=== PATIENT | female | born 1980 | race Caucasian/White ===

== ENCOUNTER 2023-06-15 11:39 | Emergency (ER) | payer MEDICAID ==
[~2023-06-15] VITALS: Ht 160 cm; Wt 45.0 kg
[~2023-06-15 11:39] MED LIST: DICY-18 PO
[2023-06-15 11:41] VITALS: O2SAT 100
[2023-06-15] MEDS ORDERED: SODIUM CHLORIDE 0.9% 1,000 ML IV ONE (12:30)
[2023-06-15 14:07] LABS: BASOPHILS % 0.2 % (0.0-2.0); DIFFERENTIAL COMMENT 0; EOSINOPHILS % 0.1 % (0.0-5.0); HEMATOCRIT. 33.9 % (36.0-48.0); HEMOGLOBIN. 10.8 g/dL (12.0-16.0); LYMPHOCYTES % 12.8 % (20.0-50.0); MEAN CORPUSCULAR HGB CONC 31.9 g/dL (31.0-37.0); MEAN CORPUSCULAR VOLUME 78.2 fL (81.0-99.0); MEAN PLATELET VOLUME 9.8 fl (7.4-10.4); MONOCYTES % 2.8 % (2.0-8.0); NEUTROPHILS % 84.1 % (40.0-76.0); PLATELET 215 x1000/uL (130-400); RED BLOOD CELL COUNT 4.34 mill/uL (4.2-5.4); RED CELL DISTRIBUTION WIDTH 14.8 % (11.6-14.6); WHITE BLOOD COUNT 10.8 x1000/uL (4.5-11.0)
[2023-06-15 14:17] LABS: CLARITY URINE CLEAR (CLEAR); COLOR URINE YELLOW (YELLOW); GLUCOSE URINE NEGATIVE (NEGATIVE); KETONES URINE 1+ (NEGATIVE); LEUKOCYTE ESTERASE URINE NEGATIVE (NEGATIVE); NITRITE URINE NEGATIVE (NEGATIVE); OCCULT BLOOD URINE 3+ (NEGATIVE); PROTEIN URINE TRACE (NEGATIVE); SPECIFIC GRAVITY URINE 1.024 (1.005-1.030)
[2023-06-15 14:24] LABS: PROTHROMBIN TIME 10.3 sec (9.6-11.0)
[2023-06-15 14:38] LABS: ALANINE AMINOTRANSFERASE < 7 IU/L (10-49); ALBUMIN 4.2 g/dL (3.2-4.8); ASPARTATE AMINOTRANSFERASE 17 IU/L (<34); BILIRUBIN TOTAL 0.7 mg/dL (0.1-1.0); CALCIUM 8.8 mg/dL (8.7-10.4); CARBON DIOXIDE 26 mEq/L (21-32); CHLORIDE 108 mEq/L (98-107); CREATININE 0.7 mg/dL (0.6-1.0); GLUCOSE 88 mg/dL (70-105); POTASSIUM 3.7 mEq/L (3.5-5.1); PROTEIN TOTAL 7.3 g/dL (6.0-8.3); SODIUM 141 mEq/L (136-145); UREA NITROGEN BLOOD 13 mg/dL (9-23)
[2023-06-15 14:39] LABS: SQUAMOUS EPITHELIAL CELL URINE FEW /lpf (RARE/1+)
[2023-06-15 14:40] LABS: BACTERIA URINE 1+; MUCUS URINE 1+ /lpf (< = 2+)
[2023-06-15 14:41] LABS: RBC URINE 50-100 /hpf (0-2); WBC URINE 0-2 /hpf (0-2)
[2023-06-15 14:46] LABS: B-HCG QUANTITATIVE < 1 mIU/mL (<3); TROPONIN I HIGH SENSITIVITY < 4 ng/L (3.0-34)
[2023-06-15 15:15] VITALS: BP 107/63; PULSE 60; RESP 12; TEMP 98.6
== END 2023-06-15 15:30 | disposition home or self-care (01) ==
LOC: ER 11:42
DX: R55 Syncope and collapse (principal); D64.9 Anemia, unspecified; N93.9 Abnormal uterine and vaginal bleeding, unspecified
CPT/HCPCS: 99285; 96360; 76830; 76856; 71045; 96361; 80053; 81003; 84702; 85025; 85610; 84484; 36415; 93005; J7030